=== PATIENT | female | born 1935 | race Caucasian/White ===

== ENCOUNTER 2022-11-30 08:21 | Emergency (ER) | payer MEDICARE ==
[~2022-11-30] VITALS: Ht 165.1 cm; Wt 65.3 kg
[~2022-11-30 08:21] MED LIST: ALBU8.5H8 IH; ALEN70TA80 PO; APIX5TAB PO; ATOR20TA65 PO; BUDE10.2 IH; DOXY100T2 PO; IPRA3AMP24 IH; LISI40TA9 PO; MONT-39 PO; PRED20B PO; SOTA80TA PO
[2022-11-30] MEDS ORDERED: HYDRALAZINE 20MG/ML VIAL IV ONE (10:00)
[2022-11-30 10:02] VITALS: BP 154/68; PULSE 74; RESP 16; O2SAT 97
[2022-11-30] MEDS ORDERED: MELO-106 PO (13:04)
== END 2022-11-30 13:10 | disposition home or self-care (01) ==
LOC: EDH 08:21
DX: S83.92XA Sprain of unspecified site of left knee, initial encounter (principal); M17.12 Unilateral primary osteoarthritis, left knee; I48.91 Unspecified atrial fibrillation; J44.9 Chronic obstructive pulmonary disease, unspecified; E78.00 Pure hypercholesterolemia, unspecified; I50.9 Heart failure, unspecified; I11.0 Hypertensive heart disease with heart failure; Z79.01 Long term (current) use of anticoagulants; Z79.51 Long term (current) use of inhaled steroids; Z79.52 Long term (current) use of systemic steroids; Z79.899 Other long term (current) drug therapy; W18.39XA Other fall on same level, initial encounter; Y93.89 Activity, other specified; Y92.89 Other specified places as the place of occurrence of the external cause; Y99.8 Other external cause status
CPT/HCPCS: 72170